=== PATIENT | female | born 1955 | race Caucasian/White ===

== ENCOUNTER → 2016-09-26 | Outpatient (CLI) | payer BC | END | disposition home or self-care (01) | LOC: C.LABSPEC 16:58 | PROVIDERS: ATTEND Dermatology | DX: L30.4 Erythema intertrigo (principal) ==

== ENCOUNTER → 2017-02-28 | Outpatient (CLI) | payer BC | END | disposition home or self-care (01) | LOC: C.LABSPEC 12:37 | PROVIDERS: ATTEND Dermatology | DX: L40.9 Psoriasis, unspecified (principal) ==

== ENCOUNTER → 2017-09-17 | Outpatient (CLI) | payer BC ==
[~2017-09-17] MED LIST: AMLO5TAB3 PO; BSP15 PO; CALC1CRE2 TOP; CYAN10005 PO; FOLI1TAB8 PO; IRBE1TAB50 PO; METO-452 PO; PYRI50TA77 PO; RIVA1TAB7 PO; SILV1CRE99 TOP; SIMV20TA2 PO; TRAZ100T29 PO; TRIA0.5O TOP; TRIA55SP NAE; VENL75CA94 PO
[2017-09-17 18:04] LABS: BLOOD UREA NITROGEN 16 mg/dl (7-18); CALCIUM 8.8 mg/dl (8.5-10.1); CARBON DIOXIDE 27 mmol/L (21-32); CREATININE 1.09 mg/dl (0.60-1.20); GLUCOSE 101 mg/dl (70-99); SODIUM 138 mmol/L (136-145)
== END | disposition home or self-care (01) ==
LOC: C.LABMFLN 14:46
PROVIDERS: ATTEND Family Medicine
DX: E87.6 Hypokalemia (principal)

== ENCOUNTER → 2017-10-10 | Outpatient (CLI) | payer BC ==
[~2017-10-10] MED LIST changes: +VENL75CA88 PO; -VENL75CA94 PO
== END | disposition home or self-care (01) ==
LOC: C.LABMFLN 14:18
PROVIDERS: ATTEND Family Medicine
DX: R19.7 Diarrhea, unspecified (principal)